=== PATIENT | female | born 2000 | race Two or more races ===

== ENCOUNTER 2025-08-22 08:01 | Outpatient (REF) | payer OTHER, SELFPAY ==
[2025-08-22 11:09] LABS: MANUAL DIFF FLAG NO
[2025-08-22 11:22] LABS: Hematocrit 38.3 % (37.0-47.0); Hemoglobin 12.6 g/dl (12.0-16.0); Imm Gran Abs Auto 0.02 X10*3/uL (0.00-0.03); Imm Gran Pct Auto 0.4 % (0.0-0.4); Lymphocytes Absolute Auto 1.5 X10*3/uL (1.2-4.9); Mean Corpuscular HGB Conc 32.9 g/dl (31.0-35.0); Mean Corpuscular Hemoglobin 29.9 pg (27.0-33.0); Mean Corpuscular Volume 90.8 fL (80.0-98.0); NRBC Abs Auto 0.000 X10*3/uL (0.0-0.012); NRBC Pct Auto 0.0 /100WBC (0.0-0.2); Platelet Count 227 X10*3/uL (160-400); Red Blood Count 4.22 X10*6/uL (4.20-5.50); White Blood Count 5.2 X10*3/uL (4.8-10.8)
[2025-08-22 12:11] LABS: Alanine Aminotransferase 14 U/L (0-31); Albumin Level 4.2 g/dL (3.5-5.0); Alkaline Phosphatase 47 U/L (39-117); Anion Gap 11 (12-20); Aspartate Amino Transferase 23 U/L (5-31); Blood Urea Nitrogen 14 mg/dL (9-16); Calcium 9.0 mg/dL (8.4-10.2); Carbon Dioxide 24 mmol/L (22-29); Chloride 109 mmol/L (96-108); Cholesterol 190 mg/dL (<200); Estimated Glomerular Filt Rate > 60; HDL Cholesterol 41 mg/dL (>40); Potassium 3.9 mmol/L (3.3-5.1); Sodium 140 mmol/L (135-145); Total Protein 6.8 g/dL (6.5-8.0); Triglycerides 93 mg/dL (<150)
== END 2025-08-22 08:02 | disposition home or self-care (01) ==
LOC: HO.WFDLDS 08:01
PROVIDERS: PCP Physician Assistant; Visit Provider Physician Assistant
DX: Z00.00 Encounter for general adult medical examination without abnormal findings (principal); H53.69 Other night blindness; A74.9 Chlamydial infection, unspecified; Z79.2 Long term (current) use of antibiotics; Z01.89 Encounter for other specified special examinations
CPT/HCPCS: 36415; 80053; 80061; 84443; 85025; 96127

== ENCOUNTER 2025-08-22 08:01 | Outpatient (AMB) | payer OTHER, SELFPAY ==
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
--- OUTSIDE RECORDS SUMMARY | 2025-08-22 08:06 | XMS_ITS | Clinical Summary ---
Author Organization [facility] Address [address] [place] [address] Care Team Providers Care Employee Relations Administrator Name Role Phone Fiona Corey TRINI Primary Care Provider + [phone] Source Comments PLEASE NOTE, if this patient is a minor, it may be UNLAWFUL to discuss sensitive information that is contained in these records (such as FAMILY PLANNING, MENTAL HEALTH or SUBSTANCE ABUSE) with the minor patient's parent or other person without the patient's specific authorization.[facility] Allergies No known active allergies Medications levonorgestreL (PLAN B) 1.5 mg tabletIndications: Encounter for contraceptive management, unspecified type Take 1 Tablet by mouth once for 1 dose 1 Tablet 3 09/26/20 23 Active naproxen (NAPROSYN) 500 mg tabletIndications: Tension headache Take 1 Tablet by mouth 2 (two) times daily with a meal 90 Tablet 1 01/02/20 24 Active hydrocortisone 2.5 % creamIndications:R merline Apply topically 2 (two) times daily 30 g 1 02/21/20 24 Active atorvastatin (LIPITOR) 20 mg tabletIndications: mixed hyperlipidemia Take 1 Tablet by mouth once daily Indications: high cholesterol and high triglycerides 90 Tablet 1 06/14/20 24 Active docusate sodium (COLACE) 100 mg capsuleIndications :Slow transit constipation,Routi ne general medical examination at a health care facility Take 1 Capsule by mouth 2 (two) times daily. 90 Capsule 1 03/28/20 25 Active doxycycline (VIBRAMYCIN) 100 mg capsuleIndications :Chronic salpingitis and oophoritis Take 1 Capsule by mouth 2 (two) times daily for 14 days. 28 Capsule 08/06/20 25 025 Hospital, Clinic, or Other Facility Administered Medication Ordered Dose Route Frequency Start Date End Date Status cefTRIAXone (Rocephin) vial 500 mgIndications:Chronic salpingitis and oophoritis 500 mg IM Once 08/06/2025 5 Ended Active Problems Problem Noted Date Diagnosed Date Positive QuantiFERON-TB Gold test 06/20/2024 Overview (06/26/2024): 06/21/2024 - Chest x-ray - Impression: Normal Lungs and pleura: clear lungs. Normal pulmonary vascularity. No pleural effusion. No pneumothorax. Nexplanon in place 02/21/2024 Overview (02/21/2024): 02/13/2024 Mixed hyperlipidemia 01/03/2024 History of blood clot in brain 01/02/2024 Encounters Date Type Department Care Team Description 08/07/2025 Results Follow-Up [address] [phone] Waldo Mauricio MD 08/06/2025 1:00 PM EDT Office Visit [address] [address] Waldo Mauricio MD Lopez, Iris from Last 3 Months Immunizations Immunization Administration Dates Next Due HPV 9 (Gardasil) 03/28/2025,02/21/2024, 4 Pfizer COVID-19 (Comirnaty), Mrna, Lnp-s, Pf, Rex-sucrose, 30 Mcg/0.3 Ml, 12yr+ 06/15/2024(Deferred: Out of Stock) TDAP 06/15/2024 Family History Medical History Relation Name Comments No Known Problems Brother x3 Hypertension Father Hypertension Mother Osteoporosis Mother No Known Problems Sister x3 Relation Name Status Comments Brother x3 Alive Father Alive Mother Alive Sister x3 Alive Social History Tobacco Use Types Packs/Day Years Used Date Smoking Tobacco: Never Smokeless Tobacco: Never Tobacco Cessation:Counseling Given: Not Answered Alcohol Use Standard Drinks/Week Comments Yes 0 (1 standard drink = 0.6 oz pur e alcohol) social Social Connections Answer Date Recorded Connectedness 0 07/17/2024 Financial Resource Strain Answer Date R ecorded Financial Resource Strain 0 2022 Stress Answer Date Recorded Stress 0 09/19/2023 Physical Activity Answer Date Recorded Physical Activity 0 09/19/2023 Food Insecurity Answer Date Recorded Food 0 08/02/2024 Transportation Needs Answer Date Record ed Transportation 0 09/19/2023 Housing Stability Answer Date Recorded Housing 0 09/19/2023 Safety and Environment Answer Date Jamie rded Safety 0 09/26/2023 Utilities Answer Date Recorded Utilities 0 09/19/2023 Employment Answer Date Recorded Employment 0 09/19/2023 Comments No Sex and Gender Information Value Date Recorded Sex Assigned at Female 09/26/2023 11:16 AM PST Legal Sex Female 8:33 AM PDT Gender Identity Female 09/26/2023 11:16 AM PST Sexual Orientation Straight 09/26/2023 11 :16 AM PST Last Filed Vital Signs Vital Sign Reading Time Taken Comments Blood Pressure 113/76 08/06/2025 1:23 PM EDT Pulse 78 08/06/2025 1:23 PM EDT Temperature 37.1 C (98.8 F) 03/28/2025 10:49 AM EDT Respiratory Rate 16 08/06/2025 1:23 PM EDT Oxygen Saturation 98% 08/06/2025 1:23 PM EDT Inhaled Oxygen Concentration - - Weight 66.2 kg (146 lb) 08/06/2025 1:23 PM EDT Height 156.6 cm (5' 1.65 ) 09/26/2023 1:51 PM ES T Body Mass Index 27 09/26/2023 1:51 PM EST Plan of Treatment Health Maintenance Due Date Last Done Comments HPV Screening 2000 Relationship Safety Screening/Counseling 09/26/2024 09/26/2023 Depression Monitoring 06/28/2025 03/28/2025 , 01/02/2024, 09/26/2023 [id number] ( season) 2025 024 Imm-Influenza (#1) 2025 Annual Wellness (Adult): Ind icated (All Coverage) 03/28/2026 03/28/2025, 02/21/2024, 09/26/2023 Anxiety Screening 03/28/2026 03/28/2025 Lipid Screening 03/28/2026 03/28/2025, 02/05, 01/02/2024 Cervical Cancer Screening 04/05/2026 Pap Smear 04/05/2026 04/05/2025, 02/21/2024 Tobacco Screening 05/05/2026 05/05/2025, 09/26/2023 Hypertension Screening (#1) 08/06/2026 Pap + HPV 04/05/2030 04/05/2025 Imm-DTaP/Tdap/Td (2 - Td or Tdap) 06/15/2034 024 Hepatitis C Screening Completed 01/02/2024 HIV Screening Completed 06/15/2024, 01/02/2024 Alcohol and Drug Screen Completed 03/28/20, 01/02/2024, 09/26/2023 Imm-HPV Completed 03/28/2025, 02/05, 01/02/2024 Cervical Ablation/Cold-Knife Conization Discontinued Cervical Cryotherapy Discontinued Colposcopy Discontinued Endometrial Biopsy Discontinued Excision/Leep Discontinued HPV Genotyping Discontinued Imm-Hepatitis B Discontinued Vaginal Pap Discontinued Vulvoscopy Discontinued Procedures Procedure Name Priority Date/Time Associated Diagnosis Comments SURESWAB ADVANCED BACTERIAL VAGINOSIS (BV), CT/NG, TMA Routine 08/06/2025 5:40 PM EDT Chronic salpingitis and oophoritis THINPREP IMAGING PAP, HPV MRNA E6/E7 RFLEX HPV 16,18/45 CT/NG Routine 04/05/2025 10:33 AM EDT Screening for HPV (human papillomavirus) LIPID PANEL Routine 03/28/2025 11:30 AM EDT Routine general medical examination at a health care facility HIV 1/2 AG & AB W/RFLX (4TH GEN) Routine 06/15/2024 1:49 PM EDT Screening due HEPATITIS C AB W/RFLX HCV RNA, QT, RT PCR Routine 01/02/2024 4:27 PM EST Routine general medical examination at a health care facility from Last 3 Months or Most Recently Relevant to Health Maintenance Results * (ABNORMAL) SUREAB ADVANCED BACTERIAL VAGINOSIS (BV), CT/NG, TMA Vaginal Vaginal Routine (08/06/2025 5:40 PM EDT) SUREAB(R) ADV BACTERIAL VAGINOSIS (BV), TMA NEGATIVE NEGATIVE 08/07/2025 3:55 PM EDT [facility] CHLAMYDIA TRACHOMATIS RNA, TMA DETECTED(A) NOT DETECTED 08/07/2025 3:55 PM EDT [facility] NEISSERIA GONORRHOEAE RNA, TMA NOT DETECTED NOT DETECTED 08/07/2025 3:55 PM EDT [facility] Vaginal Vaginal structure / Unknown 08/06/2025 5:40 PM EDT 08/07/2025 4:47 AM EDT Narrative [facility] - 08/07/2025 3:59 PM EDT . If results do not correlate with clinical findings, testing using an alternate molecular target which amplifies different genetic sequences can be performed on the same sample for result confirmation within 7 days of sample receipt or per performing laboratory specimen retention policy. Alternate target testing is available; 228[address] (C. trachomatis) or 57892 (N. gonorrhoeae). . For additional information, please refer to https://education.[employer]/faq/CPP589 (This link is being provided for information/ educational purposes only.) Waldo Mauricio MD LAB - MICROBIOLOGY AMBULATORY F inal Result [facility] [address] [place] [id number], [facility] [address] [place] [id number] * THINPREP IMAGING PAP, HPV MRNA E6/E7 RFLEX HPV 16,18/45 CT/NG Cervical Swab Routine (04/05/2025 10:33 AM EDT) Pathologist [facility] CHLAMYDIA TRACHOMATIS RNA, TMA NOT DETECTED NOT DETECTED [facility] NEISSERIA GONORRHOEAE RNA, TMA NOT DETECTED NOT DETECTED [facility] COMMENT [facility] CLINICAL INFORMATION See Note [facility] Comment:None given LMP See Note [facility] Comment:NONE GIVEN PREV. PAP See Note [facility] Comment:NONE GIVEN PREV. BX See Note [facility] Comment:NONE GIVEN SOURCE See Note [facility] Comment:Cervix STATEMENT OF ADEQUACY See Note [facility] Comment: Satisfactory for evaluation. Endocervical/transformation zone component absent. INTERPRETATION/RESU LT See Note [facility] Comment: Cytology Results: Negative for intraepithelial lesion or malignancy. COMMENT See Note [facility] Comment: This Pap test has been evaluated with computer assisted technology. CHROME TANNER See Note [facility] [employer] [facility] Comment: PHILIP, CT(ASCP) CT screening location: [place] [address] COMMENT [facility] HPV MRNA E6/E7 Not Detected Not Detected [facility] Comment: Methodology: Diesel Maintenance Electrician-Mediated Amplification This assay detects E6/E7 viral messenger RNA (mRNA) from 14 high-risk HPV types (16,18,31,33,35,39,45,51,52,56,58,59,66,68). Cervical sources are required for HPV testing. If a vaginal source from a patient who has had a total hysterectomy with removal of cervix was submitted, please contact the testing laboratory for alternative testing options. For additional information, please refer to http://Rezzcard.[employer]/faq/BUC280w6 (This link if provided for information/ educational purposes only.) Swab Cervix uteri structure / Unknown 04/05/2025 10:33 AM EDT 04/08/2025 9:45 AM EDT Narrative [facility] - 04/09/2025 10:57 AM EDT EXPLANATORY NOTE: The Pap is a screening test for cervical cancer. It is not a diagnostic test and is subject to false negative and false positive results. It is most reliable when a satisfactory sample, regularly obtained, is submitted with relevant clinical findings and history, and when the Pap result is evaluated along with historic and current clinical information. The analytical performance characteristics of this assay, when used to test SurePath(TM) specimens have been determined by [employer]. The modifications have not been cleared or approved by the FDA. This assay has been validated pursuant to the CLIA regulations and is used for clinical purposes. For additional information, please refer to https://education.[employer]/faq/UGF876 (This link is being provided for information/ educational purposes only.) Waldo Mauricio MD LAB - PATHOLOGY AND CYTOLOGY AM BULATORY Final Result Performing Organization Address [facility]/ZIP Co de Phone Number [facility] [address] [address], [facility] [address] [address] * (ABNORMAL) LIPID PANEL Routine (03/28/2025 11:30 AM EDT) CHOLESTEROL, TOTAL 224(H) <200 mg/dL [facility] HDL CHOLESTEROL 46(L) > OR = 50 mg/dL [facility] TRIGLYCERIDES 98 <150 mg/dL [facility] LDL-CHOLESTEROL 157(H) 99 mg/dL (calc) [facility] Comment: Reference range: <100 Desirable range <100 mg/dL for primary prevention; <70 mg/dL for patients with CHD or diabetic patients with > or = 2 CHD risk factors. LDL-C is now calculated using the Ken-Peng calculation, which is a validated novel method providing better accuracy than the Friedewald equation in the estimation of LDL-C. Ken SS et al. JEY. 2013;310(19): 9265-3258 (http://education.Fin[employer]/faq/KPF889) CHOL/HDLC RATIO 4.9 <5.0 (calc) [facility] NON-HDL CHOLESTEROL 178(H) <130 mg/dL (calc) [facility] Comment: For patients with diabetes plus 1 major ASCVD risk factor, treating to a non-HDL-C goal of <100 mg/dL (LDL-C of <70 mg/dL) is considered a therapeutic option. Blood Blood / Unknown 03/28/2025 1 1:30 AM EDT 03/28/2025 11:31 AM EDT Narrative [facility] - 04/03/2025 4:19 PM EDT FASTING:NO Fiona COVARRUBIASP LAB - BLOOD DRAW Final Resul t Performing Organization Address [facility]/ZIP Co de Phone Number [facility] [address] [address], [facility] [address] [address] * HIV 1/2 AG & AB W/RFLX (4TH GEN) (06/15/2024 1:49 PM EDT) Pathologist [facility] HIV AG/AB, 4TH GEN NON-REAC TIVE NON-REAC TIVE [facility] Comment: HIV-1 antigen and HIV-1/HIV-2 antibodies were not detected. There is no laboratory evidence of HIV infection. PLEASE NOTE: This information has been disclosed to you from records whose confidentiality may be protected by state law. If your state requires such protection, then the state law prohibits you from making any further disclosure of the information without the specific written consent of the person to whom it pertains, or as otherwise permitted by law. A general authorization for the release of medical or other information is NOT sufficient for this purpose. For additional information please refer to http://education.[employer]/faq/JMA360 (This link is being provided for informational/ educational purposes only.) The performance of this assay has not been clinically validated in patients less than 2 years old. Blood Blood / Unknown 06/15/2024 1 :49 PM EDT 06/15/2024 1:49 PM EDT Narrative [facility] - 06/20/2024 5:17 AM EDT FASTING:NO Pat Mclean PA-C LAB - BLOOD DRAW Final Resu lt [facility] [address] [place] [id number], [address] [address] * HEPATITIS C AB W/RFLX HCV RNA, QT, RT PCR (01/02/2024 4:27 PM EST) Pathologist [facility] HEPATITIS C ANTIBODY NON-REACT VINCE NON-REACT VINCE [facility] Comment: HCV antibody was non-reactive. There is no laboratory evidence of HCV infection. In most cases, no further action is required. However, if recent HCV exposure is suspected, a test for HCV RNA (test code 98127) is suggested. For additional information please refer to http://education.[employer]/faq/AOK86v6 (This link is being provided for informational/ educational purposes only.) Blood Blood / Unknown 01/02/2024 4 :27 PM EST 01/02/2024 4:28 PM EST Narrative [facility] - 01/07/2024 10:25 PM EST FASTING:NO Glen Bonner MD LAB - BLOOD DRAW Edited Result - Final [facility] [address] [address], [facility] [address] [address] from Last 3 Months or Most Recently Relevant to Health Maintenance Insurance [employer] Care Teams Employee Relations Administrator Relationship Specialty Start Date End Date Fiona Corey FNP [address] [place] [address] PCP - General Family Medicine, MANUFACTURING INTERN 03/21/25
[2025-08-22 08:10] VITALS: BP 106/82; PULSE 101; RESP 12; TEMP 36.8; O2SAT 99; BMI 25.1
== END 2025-08-22 08:31 | disposition home or self-care (01) ==
LOC: HO.HMCFM 08:02
PROVIDERS: PCP Physician Assistant; Visit Provider Physician Assistant
DX: Z00.00 Encounter for general adult medical examination without abnormal findings (principal); H53.69 Other night blindness; A74.9 Chlamydial infection, unspecified

== ENCOUNTER 2025-09-26 13:14 | Outpatient (AMB) | payer OTHER, SELFPAY ==
--- NOTE | 2025-09-26 13:28 | MHC.OFFVIS ---
Intake Visit Reasons: panic attacks Allergies No Known Allergies Allergy (Verified 08/22/25 08:06) HPI HPI panic attacks: Details: Pt is a 25 y.o female who presents today to [facility] care. She reports a prior history of depression but states that she has not had issues with this in many years. -she does request a referral to Ophthalmology as sometimes she feels like her vision driving at night is not as great. 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 Follows with [facility] deliverer outside but wants to see someone at [facility]. 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
[2025-09-26 13:32] VITALS: BP 118/67; PULSE 92; RESP 12; TEMP 36.8; O2SAT 98
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
== END 2025-09-26 15:27 | disposition home or self-care (01) ==
LOC: HO.HMCFM 13:15
PROVIDERS: PCP Physician Assistant; Visit Provider Physician Assistant
DX: F41.0 Panic disorder [episodic paroxysmal anxiety] (principal); G44.52 New daily persistent headache (NDPH); F33.1 Major depressive disorder, recurrent, moderate; F51.3 Sleepwalking [somnambulism]

== ENCOUNTER 2025-09-26 13:14 | Outpatient (REF) | payer OTHER, SELFPAY ==
[2025-09-26 17:40] LABS: MANUAL DIFF FLAG NO
[2025-09-26 17:54] LABS: Hematocrit 39.6 % (37.0-47.0); Hemoglobin 13.2 g/dl (12.0-16.0); Imm Gran Abs Auto 0.02 X10*3/uL (0.00-0.03); Imm Gran Pct Auto 0.3 % (0.0-0.4); Lymphocytes Absolute Auto 2.1 X10*3/uL (1.2-4.9); Mean Corpuscular HGB Conc 33.3 g/dl (31.0-35.0); Mean Corpuscular Hemoglobin 29.9 pg (27.0-33.0); Mean Corpuscular Volume 89.6 fL (80.0-98.0); NRBC Abs Auto 0.000 X10*3/uL (0.0-0.012); NRBC Pct Auto 0.0 /100WBC (0.0-0.2); Platelet Count 260 X10*3/uL (160-400); Red Blood Count 4.42 X10*6/uL (4.20-5.50); White Blood Count 7.2 X10*3/uL (4.8-10.8)
[2025-09-26 18:28] LABS: Alanine Aminotransferase 14 U/L (0-31); Albumin Level 4.4 g/dL (3.5-5.0); Alkaline Phosphatase 47 U/L (39-117); Anion Gap 9 (12-20); Aspartate Amino Transferase 19 U/L (5-31); Blood Urea Nitrogen 13 mg/dL (9-16); Calcium 9.4 mg/dL (8.4-10.2); Carbon Dioxide 25 mmol/L (22-29); Chloride 109 mmol/L (96-108); Estimated Glomerular Filt Rate > 60; Potassium 3.9 mmol/L (3.3-5.1); Sodium 139 mmol/L (135-145); Total Protein 7.3 g/dL (6.5-8.0)
[2025-09-26 19:22] LABS: Folate 12.8 ng/mL (> or = 4.0); Vitamin B12 607 pg/mL (200-900)
== END 2025-09-26 13:15 | disposition home or self-care (01) ==
LOC: HO.WFDLDS 13:14
PROVIDERS: PCP Physician Assistant; Visit Provider Physician Assistant
DX: G44.52 New daily persistent headache (NDPH) (principal); F41.0 Panic disorder [episodic paroxysmal anxiety]; F33.1 Major depressive disorder, recurrent, moderate; F41.9 Anxiety disorder, unspecified; Z91.51 Personal history of suicidal behavior; F51.3 Sleepwalking [somnambulism]
CPT/HCPCS: 36415; 80053; 82607; 82746; 84443; 85025; 96127; 99499

== ENCOUNTER 2025-10-09 11:06 | Outpatient (AMB) | payer OTHER, SELFPAY ==
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
[2025-10-09 11:19] VITALS: BP 108/76; PULSE 93; RESP 14; O2SAT 98; BMI 24.9
== END 2025-10-09 14:37 | disposition home or self-care (01) ==
LOC: HO.HMCFM 11:07
PROVIDERS: PCP Physician Assistant; Visit Provider Physician Assistant
DX: F41.0 Panic disorder [episodic paroxysmal anxiety] (principal); F33.1 Major depressive disorder, recurrent, moderate